=== PATIENT | male | born 1955 | race Two or more races ===

== ENCOUNTER 2023-08-08 15:07 | Inpatient (IN) | payer OTHER, MEDICAID ==
[~2023-08-08] VITALS: Ht 172.7 cm; Wt 56.5 kg
[2023-08-08] MEDS ORDERED: cloNIDine HCL 0.1 MG TAB PO ONE (15:45)
[2023-08-08 16:40] LABS: Basophils # (auto) 0 10 ^3/uL (0-0.2); Basophils % (auto) 0.5 % (0.0-2.0); Eosinophils # (auto) 0 10 ^3/uL (0-0.8); Eosinophils % (auto) 0.3 % (0.0-7.0); Hematocrit 45.5 % (41.0-53.0); Hemoglobin 14.6 g/dL (13.5-17.5); Lymphocytes # (auto) 1.7 10 ^3/uL (0.4-5.4); Lymphocytes % (auto) 21.4 % (10.0-50.0); Mean Corpuscular Volume 87.5 fL (80.0-100.0); Monocytes # (auto) 0.9 10 ^3/uL (0-1.3); Monocytes % (auto) 10.9 % (0.0-12.0); Neutrophils # (auto) 5.2 10 ^3/uL (1.6-8.6); Neutrophils % (auto) 66.9 % (37.0-80.0); Nucleated Red Blood Cells % 0.1 %; Red Cell Distribution Width 15.3 % (11.8-14.3); White Blood Cell 7.8 10^3/uL (4.4-10.8)
[2023-08-08 16:59] LABS: Alanine Aminotransferase 16 U/L (7-40); Albumin 4.6 g/dL (3.2-4.8); Alkaline Phosphatase 94 U/L (46-116); Anion Gap 6 (5-15); Aspartate Aminotransferase 23 U/L (13-40); BUN/Creatinine Ratio 17.6 (10.0-20.0); Blood Urea Nitrogen 15 mg/dL (9-23); Calcium 9.4 mg/dL (8.7-10.4); Carbon Dioxide 26 mmol/L (20-30); Chloride 102 mmol/L (98-107); Glucose 256 mg/dL (74-106); Lipase 47 U/L (12-53); Magnesium 2.4 mg/dL (1.6-2.6); Sodium 134 mmol/L (136-145)
[2023-08-08 17:00] LABS: Bilirubin, Total 0.6 mg/dL (0.2-1.0); Total Protein 7.6 g/dL (5.7-8.2)
[2023-08-08] MEDS ORDERED: IOHEXOL 300 MG/ML 100ML BOTTLE IJ ONE (17:14)
[2023-08-09] VITALS (7 sets, daily range): BP systolic 135–153; BP diastolic 94–101; PULSE 88–107; RESP 16–18; TEMP 97.5–98.9; O2SAT 97–100
[2023-08-09] MEDS ORDERED: ACETAMINOPHEN 325 MG TAB PO PRN (06:45)
[2023-08-09] MEDS ORDERED: NITROGLYCERIN 0.4 MG SL TAB SL PRN (06:45)
[2023-08-09] MEDS ORDERED: hydrALAZINE HCL 10 MG TAB PO PRN (06:45)
[2023-08-09] MEDS ORDERED: MORPHINE SULFATE INJ 2 MG/ml SYRG IV PRN (06:45)
[2023-08-09 07:24] LABS: Basophils # (auto) 0 10 ^3/uL (0-0.2); Basophils % (auto) 0.5 % (0.0-2.0); Eosinophils # (auto) 0.1 10 ^3/uL (0-0.8); Eosinophils % (auto) 1.7 % (0.0-7.0); Hematocrit 39.2 % (41.0-53.0); Lymphocytes # (auto) 1.8 10 ^3/uL (0.4-5.4); Lymphocytes % (auto) 37.7 % (10.0-50.0); Mean Corpuscular Hemoglobin 28.3 pg (28.0-32.0); Mean Corpuscular Hgb Conc. 33.1 g/dL (32.0-36.0); Mean Corpuscular Volume 85.4 fL (80.0-100.0); Monocytes # (auto) 0.5 10 ^3/uL (0-1.3); Monocytes % (auto) 10.1 % (0.0-12.0); Neutrophils # (auto) 2.4 10 ^3/uL (1.6-8.6); Nucleated Red Blood Cells % 0.1 %; Red Blood Cells 4.59 10^6/uL (4.5-5.90); Red Cell Distribution Width 14.9 % (11.8-14.3); White Blood Cell 4.8 10^3/uL (4.4-10.8)
[2023-08-09 07:29] LABS: Chloride 104 mmol/L (98-107); Potassium 3.6 mmol/L (3.5-5.1); Sodium 136 mmol/L (136-145)
[2023-08-09 07:30] LABS: Calcium 9.4 mg/dL (8.5-10.1)
[2023-08-09] MEDS ORDERED: DEXTROSE (50%) 50ML SYRG IV PRN (07:30)
[2023-08-09 07:33] LABS: INR 1.06 (0.9-1.15); Prothrombin Time 11.1 sec (9.3-11.8)
[2023-08-09 07:35] LABS: Blood Urea Nitrogen 16 mg/dL (9-23); Carbon Dioxide 26 mmol/L (20-30); Triglycerides 82 mg/dL (< 150)
[2023-08-09 07:36] LABS: LDL Cholesterol 75 mg/dL (< 100)
[2023-08-09 07:37] LABS: Cholesterol 124 mg/dL (< 200); HDL Cholesterol 31 mg/dL (40-59)
[2023-08-09 07:40] LABS: Anion Gap 6 (5-15); Glucose 145 mg/dL (74-106)
[2023-08-09 09:58] LABS: Urine Bacteria FEW /hpf (None Seen); Urine Blood Negative /uL (Negative); Urine Clarity Clear (Clear); Urine Color Yellow (Yellow); Urine Hyaline Cast FEW /lpf (0 - 2); Urine Mucus FEW (None Seen); Urine Protein, UAD TRACE (Negative); Urine Specific Gravity 1.027 (1.001-1.035); Urine Urobilinogen Normal (Negative); Urine WBC 1 /hpf (0 - 3)
[2023-08-09] MEDS ORDERED: PANTOPRAZOLE 40 MG/10 ML VIAL INJ IV SCH (10:00)
[2023-08-09] MEDS: InsuLIN REG 1unit/0.01ml Soln (100units/ml) SC SCH ×3 (12:01→21:54)
[2023-08-09] MEDS: ACCU-CHEK COMFORT CURVE STRIP VI SCH ×3 (12:01→21:53)
[2023-08-09] MEDS ORDERED: GABA-1250 PO (21:29)
[2023-08-09] MEDS ORDERED: GLIP10TA21 PO (21:29)
[2023-08-09] MEDS: ENOXAPARIN SOD 40 MG/0.4 ML SYRINGE SC SCH (21:53)
[2023-08-10] VITALS (7 sets, daily range): BP systolic 112–136; BP diastolic 74–89; PULSE 85–109; RESP 14–18; TEMP 97.8–98.1; O2SAT 96–100
[2023-08-10] MEDS: ACCU-CHEK COMFORT CURVE STRIP VI SCH ×4 (06:09→21:13)
[2023-08-10] MEDS: InsuLIN REG 1unit/0.01ml Soln (100units/ml) SC SCH ×4 (06:11→21:33)
[2023-08-10] MEDS: ENOXAPARIN SOD 40 MG/0.4 ML SYRINGE SC SCH (10:29)
[2023-08-11] VITALS (7 sets, daily range): BP systolic 108–119; BP diastolic 68–84; PULSE 73–103; RESP 16–20; TEMP 98.1–98.9; O2SAT 98–100
[2023-08-11] MEDS: InsuLIN REG 1unit/0.01ml Soln (100units/ml) SC SCH ×4 (06:28→21:16)
[2023-08-11] MEDS: ACCU-CHEK COMFORT CURVE STRIP VI SCH ×4 (06:28→21:17)
[2023-08-11] MEDS: ENOXAPARIN SOD 40 MG/0.4 ML SYRINGE SC SCH (09:09)
[2023-08-12 05:00] VITALS: BP 133/82; PULSE 103; RESP 16; TEMP 98.2; O2SAT 99
[2023-08-12] MEDS: HYDROcodone-ACET 5/325MG TAB PO PRN ×2 (05:07→15:53)
[2023-08-12] MEDS: ACCU-CHEK COMFORT CURVE STRIP VI SCH ×4 (06:07→21:28)
[2023-08-12] MEDS: InsuLIN REG 1unit/0.01ml Soln (100units/ml) SC SCH ×4 (06:07→21:28)
[2023-08-12 08:00] VITALS: BP 118/78; PULSE 113; PULSE 98; RESP 17; TEMP 98.1; O2SAT 96
[2023-08-12] MEDS: ENOXAPARIN SOD 40 MG/0.4 ML SYRINGE SC SCH (09:15)
[2023-08-12 13:00] VITALS: BP 129/80; PULSE 91; RESP 18; TEMP 97.7; O2SAT 99
[2023-08-12 20:00] VITALS: PULSE 88; PULSE 95; RESP 18; O2SAT 96
[2023-08-12 21:38] VITALS: BP 115/73; PULSE 97; RESP 21; TEMP 97.6; O2SAT 98
[2023-08-13 04:39] VITALS: BP 145/103; PULSE 104; RESP 22; TEMP 98.5; O2SAT 100
[2023-08-13] MEDS: HYDROcodone-ACET 5/325MG TAB PO PRN ×2 (04:43→12:00)
[2023-08-13] MEDS ORDERED: ACETAMINOPHEN 325 MG TAB PO PRN (04:45)
[2023-08-13] MEDS ORDERED: DEXTROSE (50%) 50ML SYRG IV PRN (04:45)
[2023-08-13] MEDS ORDERED: NITROGLYCERIN 0.4 MG SL TAB SL PRN (05:00)
[2023-08-13] MEDS ORDERED: MORPHINE SULFATE INJ 2 MG/ml SYRG IV PRN (05:00)
[2023-08-13] MEDS ORDERED: hydrALAZINE HCL 10 MG TAB PO PRN (05:00)
[2023-08-13] MEDS: InsuLIN REG 1unit/0.01ml Soln (100units/ml) SC SCH ×3 (06:18→17:00)
[2023-08-13] MEDS: ACCU-CHEK COMFORT CURVE STRIP VI SCH ×3 (06:18→17:26)
[2023-08-13 08:00] VITALS: BP 124/73; PULSE 89; PULSE 90; RESP 16; TEMP 98.2; O2SAT 100
[2023-08-13 09:00] VITALS: BP 124/73; PULSE 90; RESP 16; TEMP 98.2; O2SAT 100
[2023-08-13] MEDS ORDERED: ENOXAPARIN SOD 40 MG/0.4 ML SYRINGE SC SCH (10:00)
[2023-08-13 13:00] VITALS: BP 141/85; PULSE 89; RESP 18; TEMP 98.4; O2SAT 100
== END 2023-08-13 17:50 | disposition home health service (06) | DRG 948 ==
LOC: EDBD 15:07 → ER 15:07 → TELE 08-09 06:55 → TELE-WESTW 08-09 13:04 → UNDODISIN 08-11 18:25
PROVIDERS: ADMIT Nurse Practitioner Family; ATTEND Nurse Practitioner Family
DX: R41.0 Disorientation, unspecified (principal); G82.20 Paraplegia, unspecified; K63.2 Fistula of intestine; Z93.3 Colostomy status; E78.00 Pure hypercholesterolemia, unspecified; E11.9 Type 2 diabetes mellitus without complications; I10 Essential (primary) hypertension; Z86.73 Personal history of transient ischemic attack (TIA), and cerebral infarction without residual deficits; E11.42 Type 2 diabetes mellitus with diabetic polyneuropathy
CPT/HCPCS: 36415; 70450; 74176; 80048; 80053; 80061; 81001; 82962; 83036; 83605; 83690; 83735; 84484; 85025; 85610; 93306; 96374; 97163; C9113; G0378; J1815

== ENCOUNTER 2023-10-26 16:09 | Emergency (ER) | payer OTHER, MEDICAID ==
[~2023-10-26] VITALS: Ht 177.8 cm; Wt 65.9 kg
[~2023-10-26 16:09] MED LIST: GABA-1250 PO; GLIP10TA21 PO
[2023-10-26 16:20] VITALS: BP 122/84; PULSE 98; RESP 16; O2SAT 100
[2023-10-26 17:38] LABS: Basophils # (auto) 0 10 ^3/uL (0-0.2); Basophils % (auto) 0.7 % (0.0-2.0); Eosinophils # (auto) 0.2 10 ^3/uL (0-0.8); Hemoglobin 12.7 g/dL (13.5-17.5); Lymphocytes # (auto) 1.7 10 ^3/uL (0.4-5.4); Lymphocytes % (auto) 31.9 % (10.0-50.0); Mean Corpuscular Hemoglobin 29.6 pg (28.0-32.0); Mean Corpuscular Hgb Conc. 33.4 g/dL (32.0-36.0); Mean Corpuscular Volume 88.7 fL (80.0-100.0); Monocytes # (auto) 0.4 10 ^3/uL (0-1.3); Monocytes % (auto) 7.8 % (0.0-12.0); Neutrophils # (auto) 3.1 10 ^3/uL (1.6-8.6); Neutrophils % (auto) 56.6 % (37.0-80.0); Nucleated Red Blood Cells % 0.1 %; Red Blood Cells 4.29 10^6/uL (4.5-5.90); Red Cell Distribution Width 13.5 % (11.8-14.3); White Blood Cell 5.4 10^3/uL (4.4-10.8)
[2023-10-26 17:44] LABS: Alanine Aminotransferase 17 U/L (7-40); Albumin 4.3 g/dL (3.2-4.8); Alkaline Phosphatase 115 U/L (46-116); Anion Gap 3 (5-15); Aspartate Aminotransferase 11 U/L (13-40); BUN/Creatinine Ratio 24.2 (10.0-20.0); Blood Urea Nitrogen 22 mg/dL (9-23); Calcium 9.2 mg/dL (8.7-10.4); Carbon Dioxide 29 mmol/L (20-30); Chloride 102 mmol/L (98-107); Glucose 329 mg/dL (74-106); Lipase 54 U/L (12-53); Potassium 4.2 mmol/L (3.5-5.1); Sodium 134 mmol/L (136-145)
[2023-10-26 17:45] LABS: Bilirubin, Total 0.5 mg/dL (0.2-1.0); Total Protein 6.6 g/dL (5.7-8.2)
[2023-10-26] MEDS ORDERED: HYDROcodone-ACET 5/325MG TAB PO ONE (22:00)
[2023-10-26] MEDS ORDERED: SODIUM CHLORIDE 0.9% 1,000 ML IV ONE (22:15)
[2023-10-26] MEDS ORDERED: MILK OF MAGNESIA 30ML SUSP PO ONE (22:15)
[2023-10-26 22:24] LABS: Urine Bacteria NONE SEEN /hpf (None Seen); Urine Blood Negative /uL (Negative); Urine Clarity Clear (Clear); Urine Color Yellow (Yellow); Urine Protein, UAD Negative (Negative); Urine Specific Gravity 1.026 (1.001-1.035); Urine Urobilinogen Normal (Negative); Urine WBC 1 /hpf (0 - 3)
[2023-10-26] MEDS ORDERED: METR-344 PO (23:14)
== END 2023-10-27 00:06 | disposition home or self-care (01) ==
LOC: ER 16:09
DX: K59.00 Constipation, unspecified (principal); N40.0 Benign prostatic hyperplasia without lower urinary tract symptoms; K62.89 Other specified diseases of anus and rectum; D49.0 Neoplasm of unspecified behavior of digestive system; Z79.899 Other long term (current) drug therapy
CPT/HCPCS: 36415; 74176; 80053; 81001; 83605; 83690; 84484; 85025

== ENCOUNTER 2025-01-02 13:41 | Emergency (ER) | payer OTHER, MEDICAID ==
[~2025-01-02] VITALS: Ht 182.9 cm; Wt 65.9 kg
[~2025-01-02 13:41] MED LIST changes: +METR-344 PO
[2025-01-02] MEDS: LIDOCAINE W/ EPINEPHRINE 2% INJ 20ML VIAL IJ ONE (14:49)
--- NOTE | 2025-01-02 14:49 | ED.PDOC ---
HPI Comments 69 year male with hx of DM, stroke, taking eliquis presents for tongue laceration x 1 day. Occurred aprox 3 pm yesterday Denies trauma and bitting tongue. Occurred suddenly. 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 MACHINE [employer] 01/02/25 Chlorhexidine Gluconate (Mouth (CHLORHEXIDINE ORAL RINSE) 473 Ml So, 15 ML MT Q12HR for 10 Days, #473 ML 0 Refills Prov:ML LOVELACE MACHINE [employer] 01/02/25 Metronidazole (Flagyl) 500 Mg Tab, 500 MG PO TID for 7 Days, #21 TAB Prov:BAKARI HAIRSTON DO 10/26/23 Reported Medications Gabapentin (Gabapentin) 300 Mg Cap, 1 CAP PO DAILY 08/09/23 Glipizide (Glipizide Er) 10 Mg Tab, 1 TAB PO BID 08/09/23 Information Source: Patient Mode of Arrival: Wheelchair Complexity: Simple Laceration Length (cm): 1 Past Medical History PAST MEDICAL HISTORY: CVA, DM, High Lipids, HTN Family History Family History: Reviewed,noncontributory to illness, Family hx of DM, Family hx of Cancer Social History Smoker: Non-Smoker Alcohol: Denies ETOH Use Drugs: Denies Drug Use Lives In: Home All Other Systems: Reviewed and Negative (PER HPI) Physical Exam General Appearance: No Apparent Distress, Normal HEENT: Normal ENT Inspection, Pharynx Normal, TMs Normal, Other (Tongue: .5 cm wound to mid tongue. Superficial. Located to the dorsum of the tongue. No through and through laceration of the tongue. No foreign body. Airway intact) Neck: Full Range of Motion, Non-Tender, Normal, Normal Inspection Respiratory: Chest Non-Tender, Lungs Clear, No Accessory Muscle Use, No Respiratory Distress, Normal Breath Sounds Cardiovascular: No Edema, No JVD, No Murmur, No Gallop, Normal Peripheral Pulses, Regular Rate/Rhythm Breast Exam: Deferred Gastrointestinal: No Organomegaly, Non Tender, No Pulsatile Mass, Normal Bowel Sounds, Soft Genitalia: Deferred Pelvic: Deferred Rectal: Deferred Extremities: No calf tenderness, Normal capillary refill, Normal inspection, Normal range of motion, Non-tender, No pedal edema Musculoskeletal : Apperance: Normal Neurologic: Alert, 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 Was a procedure done?: No Differential diagnosis Generic Laceration: Abrasion/Contusion, Laceration, Avulsion, Other X-Ray, Labs, Meds, VS Vital Signs Date Time Temp Pulse Resp B/P (MAP) Pulse Ox O2 Delivery O2 Flow Rate FiO2 01/02/25 15:34 98.4 88 16 132/68 (89) 98 98.4 01/02/25 15:34 88 17 98 Room Air 01/02/25 13:48 98.5 93 20 128/79 (95) 98 98.5 Lab Test 01/02/25 14:47 Range/Units White Blood Count 7.0 4.4-10.8 10^3/uL Red Blood Count 4.50 4.5-5.90 10^6/uL Hemoglobin 13.7 13.5-17.5 g/dL Hematocrit 40.6 L 41.0-53.0 % Mean Corpuscular Volume 90.2 80.0-100.0 fL Mean Corpuscular Hemoglobin 30.4 28.0-32.0 pg Mean Corpuscular Hemoglobin Concent 33.7 32.0-36.0 g/dL Red Cell Distribution Width 14.9 H 11.8-14.3 % Platelet Count 235 140-450 10^3/uL Mean Platelet Volume 7.6 6.9-10.8 fL Neutrophils (%) (Auto) 69.3 37.0-80.0 % Lymphocytes (%) (Auto) 19.5 10.0-50.0 % Monocytes (%) (Auto) 6.4 0.0-12.0 % Eosinophils (%) (Auto) 4.1 0.0-7.0 % Basophils (%) (Auto) 0.7 0.0-2.0 % Neutrophils # (Auto) 4.8 1.6-8.6 10 ^3/uL Lymphocytes # (Auto) 1.4 0.4-5.4 10 ^3/uL Monocytes # (Auto) 0.4 0-1.3 10 ^3/uL Eosinophils # (Auto) 0.3 0-0.8 10 ^3/uL Basophils # (Auto) 0 0-0.2 10 ^3/uL Nucleated Red Blood Cells 0.1 % Prothrombin Time 10.8 9.3-11.8 sec Prothrombin Time INR 1.02 0.9-1.15 Sodium Level 141 136-145 mmol/L Potassium Level 4.0 3.5-5.1 mmol/L Chloride Level 106 98-107 mmol/L Carbon Dioxide Level 25 20-31 mmol/L Anion Gap 10 5-15 Blood Urea Nitrogen 22 9-23 mg/dL Creatinine 0.71 0.700-1.30 mg/dL Glomerular Filtration Rate Calc 99 >90 mL/min BUN/Creatinine Ratio 31.0 H 10.0-20.0 Serum Glucose 172 H 74-106 mg/dL Calcium Level 9.1 8.7-10.4 mg/dL X-Ray, Labs, Meds, VS Comment 69 year male with hx of DM, stroke, taking eliquis presents for tongue laceration x 1 day. Laceration approximately 0.5 cm in length to the dorsum of the tongue. Superficial laceration. Does not cross through the tongue. Laceration greater than 24 hours. Because of the risk of infection, laceration should be left open to heal by secondary intention. Patient is immunocompromise therefore based on show decision-making prophylactic antibiotics will be initiated. Return in 24 hours or sooner for wound check Time of 1ST Reevaluation: 14:43 Reevaluation 1ST: Unchanged Time of 2ND Reevaluation: 15:16 Reevaluation 2ND: Improved Patient Education/Counseling: Diagnosis, Treatment Family Education/Counseling: Diagnosis, Treatment Departure 1 Departure Time of Disposition: 15:27 Impression: Primary Impression: Tongue laceration Qualified Codes: S01.512A - Laceration without foreign body of oral cavity, initial encounter Disposition: HOME / SELF CARE / HOMELESS Condition: Stable e-Prescriptions Amoxicillin & Pot Clavulanate (AUGMENTIN TABLET) 875 Mg Tb 875 MG PO BID for 7 Days, #14 TAB 0 Refills Prov: ML [employer]OVELACE MACHINE [employer] 01/02/25 Chlorhexidine Gluconate (Mouth (CHLORHEXIDINE ORAL RINSE) 473 Ml So 15 ML MT Q12HR for 10 Days, #473 ML 0 Refills Prov: ML [employer]OVELACE MACHINE [employer] 01/02/25 Discharged With: Spouse Critical Care Note Critical Care Time?: No Stability Stability form required: No Heart Score Heart Score: Heart Score Response (Comments) Value History N/A 0 EKG N/A 0 Age N/A 0 Risk Factors N/A 0 Troponin N/A 0 Total 0 ML LOVELACE MACHINE [employer] January 02, 2025 14:49
[2025-01-02 15:01] LABS: Basophils # (auto) 0 10 ^3/uL (0-0.2); Basophils % (auto) 0.7 % (0.0-2.0); Eosinophils # (auto) 0.3 10 ^3/uL (0-0.8); Eosinophils % (auto) 4.1 % (0.0-7.0); Hematocrit 40.6 % (41.0-53.0); Hemoglobin 13.7 g/dL (13.5-17.5); Lymphocytes # (auto) 1.4 10 ^3/uL (0.4-5.4); Lymphocytes % (auto) 19.5 % (10.0-50.0); Mean Corpuscular Hemoglobin 30.4 pg (28.0-32.0); Mean Corpuscular Hgb Conc. 33.7 g/dL (32.0-36.0); Mean Corpuscular Volume 90.2 fL (80.0-100.0); Monocytes # (auto) 0.4 10 ^3/uL (0-1.3); Monocytes % (auto) 6.4 % (0.0-12.0); Neutrophils # (auto) 4.8 10 ^3/uL (1.6-8.6); Neutrophils % (auto) 69.3 % (37.0-80.0); Nucleated Red Blood Cells % 0.1 %; Platelet Count (auto) 235 10^3/uL (140-450); Red Cell Distribution Width 14.9 % (11.8-14.3)
[2025-01-02 15:09] LABS: Chloride 106 mmol/L (98-107); Sodium 141 mmol/L (136-145)
[2025-01-02 15:10] LABS: Anion Gap 10 (5-15); Carbon Dioxide 25 mmol/L (20-31)
[2025-01-02 15:11] LABS: Calcium 9.1 mg/dL (8.7-10.4)
[2025-01-02 15:15] LABS: Blood Urea Nitrogen 22 mg/dL (9-23)
[2025-01-02 15:16] LABS: Glucose 172 mg/dL (74-106)
[2025-01-02 15:17] LABS: INR 1.02 (0.9-1.15); Prothrombin Time 10.8 sec (9.3-11.8)
[2025-01-02] MEDS ORDERED: CHL12OR MT (15:22)
[2025-01-02] MEDS ORDERED: AUG875T PO (15:22)
[2025-01-02 15:34] VITALS: BP 132/68; PULSE 88; RESP 17; TEMP 98.4; O2SAT 98
== END 2025-01-02 15:35 | disposition home or self-care (01) ==
LOC: ER 13:50
DX: S01.512A Laceration without foreign body of oral cavity, initial encounter (principal); I63.9 Cerebral infarction, unspecified; I10 Essential (primary) hypertension; E11.9 Type 2 diabetes mellitus without complications; E78.5 Hyperlipidemia, unspecified; X58.XXXA Exposure to other specified factors, initial encounter; Y93.89 Activity, other specified; Y92.89 Other specified places as the place of occurrence of the external cause; Y99.8 Other external cause status
CPT/HCPCS: 36415; 80048; 85025; 85610